=== PATIENT | female | born 1960 | race African-American/Black ===

== ENCOUNTER 2020-06-05 23:35 | Emergency (ER) | payer BC ==
[~2020-06-05] VITALS: Ht 172.7 cm; Wt 59.0 kg
[2020-06-06] MEDS ORDERED: CYCLOBENZAPRINE5 MG PO (02:15)
[2020-06-06] MEDS ORDERED: IBUPROFEN 600600 M1 PO (02:15)
[2020-06-06] MEDS ORDERED: ZOFRAN ODT4 MG PO (02:15)
[2020-06-06 02:35] VITALS: BP 131/77
== END 2020-06-06 02:31 | disposition home or self-care (01) ==
LOC: ER 23:35
DX: S06.0X0A Concussion without loss of consciousness, initial encounter (principal); S23.3XXA Sprain of ligaments of thoracic spine, initial encounter; Z98.890 Other specified postprocedural states; V49.59XA Passenger injured in collision with other motor vehicles in traffic accident, initial encounter; Y93.89 Activity, other specified; Y92.413 State road as the place of occurrence of the external cause; Y99.9 Unspecified external cause status